=== PATIENT | male | born 1970 | race Hispanic/Latino ===

== ENCOUNTER 2017-08-19 10:46 | Outpatient (CLI) | payer BC, OTHER | END 2017-08-19 10:47 | disposition home or self-care (01) | LOC: BICRAD 10:46 | PROVIDERS: ATTEND Surgery | DX: M17.11 Unilateral primary osteoarthritis, right knee (principal) ==

== ENCOUNTER 2019-06-22 18:11 | Emergency (ER) | payer OTHER ==
[2019-06-22] MEDS ORDERED: Adacel (T-DAP) 0.5 ML SYRINGE ONE (18:45)
--- NOTE | 2019-06-22 19:36 | RAD ---
Left wrist:3 views. INDICATIONS:Injury with pain COMPARISON:None FINDINGS: Distal radius and ulna appear unremarkable. Carpals appear normally aligned and intact. Metacarpals appear intact. No soft tissue abnormality identified. IMPRESSION: No acute finding.
--- NOTE | 2019-06-22 19:37 | RAD ---
Left elbow:4 views INDICATIONS: Injury with pain COMPARISON: None FINDINGS: No evidence of fracture or osseous abnormality No evidence of joint effusion No soft tissue abnormality. IMPRESSION: No acute finding
--- NOTE | 2019-06-22 19:40 | RAD ---
Left knee:4 views INDICATIONS:Injury with pain COMPARISON:None FINDINGS: Moderate degenerative change. Narrowing of the lateral joint space with marginal osteophytes. Joint effusion in the suprapatellar region. Nondisplaced fracture involving the head of the fibula. No other fracture identified. No soft tissue abnormality. IMPRESSION: 1. Fracture of proximal fibula without displacement 2. Degenerative changes described 3. Joint effusion
--- NOTE | 2019-06-22 19:41 | RAD ---
EXAM: Left tibia-fibula: 2 views INDICATIONS: Fall with injury COMPARISON: None. FINDINGS: Fracture involving the head of the fibula without displacement. Degenerative change at the knee as described on the exam. No other fracture. IMPRESSION: Fracture proximal fibula
[2019-06-22] MEDS ORDERED: HYDROcodone/Acetaminophen 7.5/325 mg Tablet ONE (20:16)
[2019-06-22] MEDS ORDERED: Bacitracin 1 PK ONE (21:32)
== END 2019-06-22 22:27 | disposition home or self-care (01) ==
LOC: ERS 18:11
DX: S82.832A Other fracture of upper and lower end of left fibula, initial encounter for closed fracture (principal); W18.30XA Fall on same level, unspecified, initial encounter
CPT/HCPCS: 90471; 90715

== ENCOUNTER 2023-05-21 11:17 | Outpatient (CLI) | payer BC ==
[2023-05-21 13:38] LABS: Prothrombin Time 10.3 sec (9.5-12.1)
[2023-05-21 13:42] LABS: #Basophils 0.1 10x3/uL (0.0-0.2); #Eosinphils 0.3 10x3/uL (0.0-0.5); #Monocytes 0.6 10x3/uL (0.0-1.1); #Neutrophils 3.7 10x3/uL (1.5-8.4); %Eosinophils 3.8 % (0.0-6.0); %Lymphocytes 33.9 % (18.0-47.0); %Monocytes 8.6 % (0.0-10.0); %Neutrophils 52.3 % (40.0-75.0); Hematocrit 43.9 % (38.8-50.0); Mean Corpuscular HGB CONC 34.2 g/dL (32.0-36.0); Mean Corpuscular Hemoglobin 29.6 pg (27.0-33.0); Mean Corpuscular Volume 86.6 fl (81.2-95.1); Mean Platelet Volume 10.4 fl (7.4-10.4); Platelet Count 352 10x3/uL (150-450); Red Blood Cell (RBC) Count 5.07 10x6/uL (4.32-5.72); White Blood Cell (WBC) Count 7.1 10x3/uL (3.5-10.5)
[2023-05-21 13:43] LABS: Anion Gap 14 mmol/L (10-20); BUN (Urea Nitrogen) 17 mg/dL (8.4-25.7); Calc. Creatinine Clearance 0 mL/min (70-130); Calcium 8.8 mg/dL (7.8-10.44); Carbon Dioxide 22 mmol/L (22-29); Chloride 105 mmol/L (98-107); Estimated GFR 88; Glucose 118 mg/dL (70-105); Potassium 4.2 mmol/L (3.5-5.1); Sodium 137 mmol/L (136-145)
== END 2023-05-21 11:18 | disposition home or self-care (01) ==
LOC: LABBT 11:17
PROVIDERS: ATTEND Orthopaedic Surgery
DX: Z01.818 Encounter for other preprocedural examination (principal); M17.11 Unilateral primary osteoarthritis, right knee
CPT/HCPCS: 80048; 85025; 85610; 87081; 93005; 93010

== ENCOUNTER 2023-05-26 06:34 | Observation (INO) | payer BC ==
[2023-05-21 12:37] VITALS: BMI 39.9
[2023-05-26] MEDS ORDERED: Tranexamic Acid 1,000 MG/10 ML VIAL ONE (07:53)
[2023-05-26] MEDS ORDERED: Vancomycin (BATCH) 1.5 GM/300 ML BAG ONE (07:53)
[2023-05-26] MEDS ORDERED: Sodium Chloride 0.9% 100 ML ONE ×2 (07:53→08:32)
[2023-05-26] MEDS ORDERED: fentaNYL 50 mcg/mL 1 mL Vial ONE (08:26)
[2023-05-26] MEDS ORDERED: Bupivacaine PF 0.5% 30 ML VIAL ONE (08:26)
[2023-05-26] MEDS ORDERED: Midazolam HCl 2 mg/2 ml Vial ONE ×2 (08:26→10:53)
[2023-05-26] MEDS ORDERED: EPINEPHrine 1 MG/ML VIAL ONE (08:32)
[2023-05-26] MEDS ORDERED: Bupivacaine 0.25% HCL 30 ML VIAL ONE (08:32)
[2023-05-26] MEDS ORDERED: CEFAZOLIN 2 GM VIAL ONE (08:32)
[2023-05-26] MEDS ORDERED: PROPOFOL 20 ML ONE ×2 (08:37→10:54)
[2023-05-26] MEDS ORDERED: fentaNYL PF 100 MCG/2 ML SYRINGE ONE ×3 (08:37→11:43)
[2023-05-26] MEDS ORDERED: Ondansetron PF 4 MG/2 ML Vial ONE (08:38)
[2023-05-26] MEDS ORDERED: Lidocaine 1% PF 5 ML VIAL ONE (08:38)
[2023-05-26] MEDS ORDERED: Bupivacaine HCl 0.5%/Epinephrine 1:200,000/PF 30 ml Vial ONE (08:45)
[2023-05-26] MEDS ORDERED: fentaNYL 50 mcg/mL 1 mL Vial SLOW IVP PRN (08:47)
[2023-05-26] MEDS ORDERED: Promethazine HCl 25 MG/ML VIAL IM PRN (09:00)
[2023-05-26] MEDS ORDERED: traMADol HCl 50 MG TAB PO PRN (09:00)
[2023-05-26] MEDS ORDERED: HYDROcodone/Acetaminophen 10/325 mg Tablet PO PRN (09:00)
[2023-05-26] MEDS ORDERED: Ondansetron PF 4 MG/2 ML Vial IVP PRN (09:00)
[2023-05-26] MEDS ORDERED: Ropivacaine 0.2% 550 ML 550 ML NERVE BLCK SCH (09:00)
[2023-05-26] MEDS ORDERED: Zolpidem Tartrate 5 MG TAB PO PRN (09:00)
[2023-05-26] MEDS ORDERED: diphenhydrAMINE 25 MG CAP PO PRN (10:40)
[2023-05-26] MEDS ORDERED: Acetaminophen 325 MG TAB PO PRN (10:40)
[2023-05-26] MEDS ORDERED: Dexmedetomidine 200 MCG/2 ML VIAL ONE (11:06)
[2023-05-26] MEDS ORDERED: HYDROmorphone 0.5 MG/0.5 ML SYRINGE ONE ×2 (11:16→11:31)
[2023-05-26] MEDS ORDERED: Ketorolac Tromethamine 30 MG (1 mL) VIAL ONE (11:55)
[2023-05-26] MEDS: Ketorolac Tromethamine 30 MG (1 mL) VIAL IVP SCH (11:56)
[2023-05-26] MEDS: Sodium Chloride 0.9% 1,000 ML IV SCH (13:21)
[2023-05-26] MEDS: HYDROcodone/Acetaminophen 10/325 mg Tablet PO PRN (13:23)
[2023-05-26] MEDS: traMADol HCl 50 MG TAB PO PRN (16:07)
[2023-05-26] MEDS: CEFAZOLIN 2 GM in Sodium Chloride 0.9% 100 ML IVPB SCH (16:08)
[2023-05-26] MEDS: Ferrous Gluconate 324 MG TAB PO SCH (20:38)
[2023-05-26] MEDS: Senokot S 8.6-50 MG TAB PO SCH (20:38)
[2023-05-26] MEDS: Aspirin 81 mg Enteric Coated Tablet PO SCH (20:38)
[2023-05-27 04:55] LABS: Hematocrit 35.7 % (42.0-52.0); Hemoglobin 11.9 g/dL (14.0-18.0); Mean Corpuscular HGB CONC 33.3 g/dL (32.0-36.0); Mean Corpuscular Hemoglobin 29.5 pg (27.0-31.0); Mean Corpuscular Volume 88.6 fl (78.0-98.0); Mean Platelet Volume 9.9 fL (7.4-10.4); Platelet Count 249 10x3/uL (130-400); Red Blood Cell (RBC) Count 4.03 mill/uL (4.70-6.10); White Blood Cell (WBC) Count 6.4 10x3/uL (4.8-10.8)
[2023-05-27] MEDS: Multivitamin W/ Minerals 1 TAB PO SCH (07:56)
[2023-05-27 11:45] VITALS: BP 126/80; TEMP 97.6
== END 2023-05-27 13:00 | disposition home or self-care (01) ==
LOC: SDC 06:34 → SURG A 13:15
PROVIDERS: ADMIT Orthopaedic Surgery; ATTEND Orthopaedic Surgery
PROC: 0SRC0JZ Replacement of Right Knee Joint with Synthetic Substitute, Open Approach (ICD-10-PCS; principal; 2023-05-26)
DX: M17.11 Unilateral primary osteoarthritis, right knee (principal)
CPT/HCPCS: 36415; 85027; A4306; C1713; C1776; J0171; J0665; J1170; J1885; J2250; J2405; J2704; J2795; J3010; J3370; J3490; J7050